=== PATIENT | male | born 1930 | race Caucasian/White ===

== ENCOUNTER 2018-06-23 06:42 | Day surgery (SDC) | payer MEDICARE, OTHER ==
[2018-06-22 11:16] VITALS: BMI 26.4
--- NOTE | 2018-06-23 10:11 | OP ---
DATE OF PROCEDURE: 06/23/2018 PROCEDURES PERFORMED: Colonoscopy with snare polypectomy, and submucosal injection and biopsy. PREOPERATIVE DIAGNOSIS: Altered bowel habits. DESCRIPTION OF PROCEDURE: Informed consent was obtained from the patient. He was sedated with total intravenous anesthesia. The rectal exam was performed and was normal. The colonoscope was advanced to the terminal ileum without difficulty. The preparation quality was good. The mucosa of the terminal ileum had a small aphthous ulceration and a couple of diverticula, but otherwise was unremarkable. The cecum had a 9 mm flat polyp at the appendiceal orifice. This was raised with saline submucosally and then removed with snare cautery polypectomy. A 5-mm polyp was removed by snare cautery polypectomy from the cecum as well. There was a 1 cm flat polyp along the proximal rim of the ileocecal valve. This was removed by snare cautery polypectomy. There was a small residual rim on the proximal side of the polypectomy site away from the ileocecal valve. This was cauterized with a 10-Thai Gold probe to ablate the remaining polyp edge. I removed a 4-mm polyp by cold snare polypectomy from the ascending colon. A 5-mm polyp was removed from the transverse colon by cold snare polypectomy. Two polyps were removed from the rectum measuring 6 mm and 4 mm. The smaller polyp was removed by cold snare and the larger polyp was removed by hot snare. Retroflex views in the rectum were unremarkable. Random biopsies were taken from the right and left colon to rule out microscopic colitis. There was moderate diverticulosis of the hepatic flexure and transverse, descending, and sigmoid colon. IMPRESSION: 1. 9 mm appendiceal orifice polyp raised with saline and removed by hot snare. 2. 1 cm ileocecal valve polyp removed by hot snare. The flat proximal rim of this polyp was cauterized with a gold probe to ablate the remaining polyp. 3. A 5 mm cecal polyp was removed. 4. 4 mm and 5 mm polyps were removed from the ascending and transverse colon. 5. 6 mm and 4 mm polyps were removed from the rectum. 6. Moderate diverticulosis of the hepatic flexure, transverse colon, and descending and sigmoid colon. 7. Small aphthous ulceration in the terminal ileum and a couple of diverticula in the terminal ileum. 8. Otherwise normal colonoscopy. There was some increased vascularity in the cecal area. Random biopsies were taken from the right and left colon to rule out microscopic colitis. RECOMMENDATIONS: 1. Await histopathology. 2. Follow up in GI clinic in 3 to 4 weeks. 3. Restart Eliquis in 7 days. Job ID: [id number]
[2018-06-23] MEDS ORDERED: Lidocaine 1% PF 5 ML VIAL ONE (16:26)
[2018-06-23] MEDS ORDERED: PROPOFOL 200 MG/20 ML VIAL ONE (16:26)
== END 2018-06-23 10:30 | disposition home or self-care (01) ==
LOC: SDC 06:42
PROVIDERS: ATTEND Internal Medicine Gastroenterology
PROC: 0DBK8ZZ Excision of Ascending Colon, Via Natural or Artificial Opening Endoscopic (ICD-10-PCS; principal; 2018-06-23)
PROC: 0DBP8ZZ Excision of Rectum, Via Natural or Artificial Opening Endoscopic (ICD-10-PCS; 2018-06-23)
PROC: 0DBC8ZZ Excision of Ileocecal Valve, Via Natural or Artificial Opening Endoscopic (ICD-10-PCS; 2018-06-23)
PROC: 0DBH8ZZ Excision of Cecum, Via Natural or Artificial Opening Endoscopic (ICD-10-PCS; 2018-06-23)
PROC: 0DBG8ZX Excision of Left Large Intestine, Via Natural or Artificial Opening Endoscopic, Diagnostic (ICD-10-PCS; 2018-06-23)
PROC: 0DBF8ZX Excision of Right Large Intestine, Via Natural or Artificial Opening Endoscopic, Diagnostic (ICD-10-PCS; 2018-06-23)
DX: R19.4 Change in bowel habit (principal); D12.0 Benign neoplasm of cecum; D12.3 Benign neoplasm of transverse colon; D12.2 Benign neoplasm of ascending colon; K62.1 Rectal polyp; K57.30 Diverticulosis of large intestine without perforation or abscess without bleeding; K52.9 Noninfective gastroenteritis and colitis, unspecified; E78.00 Pure hypercholesterolemia, unspecified; R03.0 Elevated blood-pressure reading, without diagnosis of hypertension; Z79.01 Long term (current) use of anticoagulants; Z79.899 Other long term (current) drug therapy; Z87.891 Personal history of nicotine dependence; Z80.0 Family history of malignant neoplasm of digestive organs; Z86.010 Personal history of colon polyps
CPT/HCPCS: 88305; J2001; J2704

== ENCOUNTER 2018-08-17 09:19 | Outpatient (CLI) | payer MEDICARE, OTHER ==
--- NOTE | 2018-08-17 10:45 | CT ---
CT ABDOMEN AND PELVIS WITH IV CONTRAST 08/17/2018 CLINICAL INFORMATION: Weight loss, altered bowel function. Colonic polyp. COMPARISON: None. Technique: Multiple contiguous axial CT images are obtained through the abdomen and pelvis with IV contrast. Cor onal reformatted images are provided. FINDINGS: Lower Chest: A trace pericardial effusion is present. There is a small right pleural effusion and ass ociated passive atelectasis. Reticulonodular densities are seen in the region of the lingula and left lower lobe with suggestion of minimal bronchiectasis in the left lower lobe. Reticulonodular den sities may be related to infectious or inflammatory process. Atypical infectious process is a possibility. Vessels: Vascular calcifications are seen in the coronary arteries as well as involving the abdominal aorta and iliac arteries. The abdominal aorta is normal in caliber, but there is mild aneurysmal dilatation of the left common iliac artery measuring 2 cm with ectasia of the right common iliac duong ry measuring 1.9 cm. Abdomen: Portal vein:Patent Gallbladder: Within normal limits for CT imaging. Liver: A subcentimeter too small to characterize hypodense lesion seen in the posterior aspect latera l segment left hepatic lobe. Spleen: within normal limits. Pancreas: within normal limits. Adrenals: within normal limits. Kidneys: There are subcentimeter too small to characterize hypodense lesions in each kidney with yoseph tional larger hypodense lesions in each kidney which demonstrate attenuation coefficients most compatible with cysts. Largest cyst inferior pole right kidney measures 3.2 cm with largest cyst in m id left kidney measuring 2.8 cm. There is an irregular area of increased density seen within the lateral aspect junction of the midportion and inferior pole right kidney which may potentially repres ent a calcification. However, this difficult to further evaluate on this exam. This measures approximately 8 mm. There is a closely adjacent cyst, and findings could be related to calcification at the margin of the cyst. Bowel: Normal caliber. Appendix: The appendix is visualized and normal in caliber. Peritoneum: No ascites or free air; no fluid collection. Mesentery and Retroperitoneum: No enlarged mesenteric or retroperitoneal lymph nodes. Abdominal Wall: There is a small fat-containing umbilical hernia. There is also a fat-containing righ t inguinal canal. Pelvis: Reproductive Organs: There is a low-density area seen centrally within the prostate gland. This could potentially be related to prior TURP. Clinical correlation suggested. Pelvis within normal limits. Bladder: within normal limits. Bones: Multilevel degenerative changes are seen throughout the spine with prominent bridging osteophy aquiles at multiple levels in the lumbar spine. No lytic or sclerotic osseous lesions are appreciated. IMPRESSION: 1. Reticulonodular nodular densities left lung base which could be related to infectious or inflammat ory process. Atypical infectious process is a possibility. 2. Small right pleural effusion and associated atelectasis. 3. Trace pericardial effusion. 4. Irregular increased density focus junction midportion and inferior pole right kidney which could b e related to calcification associated with wall of a small cyst in this region. However, this is difficult to definitely evaluate on this exam. Follow-up evaluation in 4-6 months is recommended with pre and postcontrast CT of the abdomen. 5. Bilateral renal cysts in addition to subcentimeter too small to characterize hypodense renal lesio ns. 6. Subcentimeter too small to characterize hypodense lesion left hepatic lobe. 7. No evidence of lymphadenopathy. 8. Low-density area seen centrally within the prostate gland which could be related to prior TURP. Ho loganver, clinical correlation is recommended. 9. 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
--- NOTE | 2018-08-17 11:57 | RAD ---
CHEST TWO VIEWS: HISTORY: Unintentional weight loss. COMPARISON: None. FINDINGS: There are abnormal extensive interstitial markings throughout the lungs. There is a small right effu kari. There are some patchy opacities in the left lung base. IMPRESSION: 1. Patchy opacities, left lung base, concerning for underlying infection or aspiration. 2. Small right effusion. Followup after treatment is recommended. 3. Scarring in the lung bases. POS: CET
== END 2018-08-17 09:20 | disposition home or self-care (01) ==
LOC: BICCT 09:19
PROVIDERS: ATTEND Internal Medicine Gastroenterology
DX: K63.5 Polyp of colon (principal); R63.4 Abnormal weight loss; R19.4 Change in bowel habit; R91.8 Other nonspecific abnormal finding of lung field; J90 Pleural effusion, not elsewhere classified; J98.11 Atelectasis; N28.89 Other specified disorders of kidney and ureter; N28.1 Cyst of kidney, acquired; I70.90 Unspecified atherosclerosis; I72.9 Aneurysm of unspecified site; J98.4 Other disorders of lung
CPT/HCPCS: 71046; 74177; 82565

== ENCOUNTER 2018-09-13 14:28 | Outpatient (CLI) | payer MEDICARE, OTHER | END 2018-09-13 14:29 | disposition home or self-care (01) | LOC: ULT 14:28 | PROVIDERS: ATTEND Internal Medicine Pulmonary Disease | DX: I26.99 Other pulmonary embolism without acute cor pulmonale (principal); I07.1 Rheumatic tricuspid insufficiency | CPT/HCPCS: 93306 ==

== ENCOUNTER 2018-09-28 12:58 | Outpatient (CLI) | payer MEDICARE, OTHER ==
--- NOTE | 2018-09-28 15:24 | PET ---
PET SCAN WITH CT ATTENUATION CORRECTION: HISTORY: Malignant neoplasm of lower third of esophagus. COMPARISON: CT abdomen/pelvis dated 08/17/18. TECHNIQUE: PET scanning with CT attenuation correction is performed from the base of the brain to the proximal t highs following the intravenous administration of 11.3 mCi [id number]. FINDINGS: HEAD/NECK: No abnormal FDG localization. CHEST: There is increased FDG avidity involving the distal esophagus/gastroesophageal junction. There appear s to be a component involving the serosal margin. Maximum SUV is 3.6. There are subcentimeter nodules in the left lower lobe which do not have FDG avidity. Redemonstration of a right-sided pleural effusion with adjacent atelectatic change. ABDOMEN/PELVIS: No abnormal FDG localization in the abdomen. No abnormal FDG localization in the pelvis. There is increased FDG avidity involving the central aspect of the prostate gland. Correlation made w ith previous CT demonstrates a corresponding hypodensity. Given FDG avidity with a maximum SUV of 9.5 , the possibility of a prostate cancer cannot be entirely excluded. OSSEOUS STRUCTURES: No abnormal FDG avidity. IMPRESSION: 1. Increased FDG avidity involving the distal thoracic esophagus/gastroesophageal junction. Ther e is presumed mucosal involvement. There may also be a component that abuts the serosal margin. 2. Lung parenchymal changes as described above. 3. FDG avidity involving the central aspect of the prostate gland with associated hypoattenuation on recent CT. The possibility of a malignant lesion cannot be excluded. Correlate clinically. BUSHRA T. POS: HARSH
== END 2018-09-28 12:59 | disposition home or self-care (01) ==
LOC: PET 12:58
PROVIDERS: ATTEND Internal Medicine Hematology & Oncology
DX: C15.5 Malignant neoplasm of lower third of esophagus (principal)
CPT/HCPCS: 78815; A9552